=== PATIENT | female | born 2000 | race Two or more races ===

== ENCOUNTER 2020-02-19 11:20 | Inpatient (IN) | payer OTHER ==
[2020-02-19] MEDS ORDERED: ELECTROLYTE-148 SOLN 1,000 ML IV SCH (11:45)
--- NOTE | 2020-02-19 12:11 | HP ---
Past Medical History - Primary Care Physician PCP:: Enrique Beaulieu - Admission Chief Complaint: contractions History Source: Patient Limitations to Obtaining History: No Limitations - Past Medical History ...: 1 ...Para: 0 ... Weeks Gestation by Dates: 40.1 ...EDC by Sono: 02/18/20 - Past Surgical History Past Surgical History: Yes: None Hx Myomectomy: No Hx Transabdominal Cerclage: No - Smoking History Smoking history: Never smoked - Alcohol/Substance Use Hx Alcohol Use: No Home Medications - Allergies Allergies/Adverse Reactions: Allergies Allergy/AdvReac Type Severity Reaction Status Date / Time No Known Allergies Allergy Verified 02/17/20 14:57 - Home Medications Home Medications: Ambulatory Orders Pnv No.95/Ferrous Fum/Folic AC [ Vitamin Tablet] 1 each PO DAILY 02/17/20 Review of Systems - Review of Systems Constitutional: reports: No Symptoms Cardiovascular: reports: No Symptoms Respiratory: reports: No Symptoms Gastrointestinal: reports: Abdominal Pain Genitourinary: reports: No Symptoms Breasts: reports: No Symptoms Reported Musculoskeletal: reports: No Symptoms Neurological: reports: No Symptoms Psychiatric: reports: No Symptoms Physical Exam - Maternity Constitutional: Yes: No Distress, Calm Cardiovascular: Yes: Regular Rate and Rhythm Lungs: Clear to auscultation Breast(s): Yes: WNL - Abdominal Exam/OB Fundal Height: 40 Number of Fetuses: Single Presentation: Vertex Contractions: Yes Regularity: Irregular Intensity: Mild/Mod Monitor Mode: External Heart Rate (range): 150 Category: I - Vaginal Exam/OB Vaginal Bleeding: No Dilatation (cm): 4 Effacement (%): 100 Amniotic Membrane Status: Intact Presentation: Vertex/Position Station: -1 - Physical Exam Musculoskeletal: Yes: WNL Extremities: Yes: WNL Edema: No ...Motor Strength: WNL Psychiatric: Yes: Alert, Oriented Assessment/Plan 19 y/o at 40w1d in early labor. Admit to L&D Pain management Pitocin as needed EFM and toco Reassess
[2020-02-19] MEDS ORDERED: OXYTOCIN 30 UNITS in 0.9% NS 30 UNIT/500 ML INFUS.BAG IVPB SCH (12:15)
[2020-02-19 12:48] VITALS: BMI 32.7
[2020-02-19 13:02] LABS: BASO % 0.2 % (0-2.0); EOS % 0.1 % (0-4.5); HEMATOCRIT 35.1 % (32.4-45.2); HEMOGLOBIN 11.8 GM/dL (10.7-15.3); LYMPH % 14.1 % (8-40); MCHC 33.6 g/dl (32.0-36.0); MEAN CELL VOLUME 89.5 fl (80-96); MEAN PLT VOLUME 9.3 fl (7.5-11.1); MONO % 3.9 % (3.8-10.2); NEUT % 81.7 % (42.8-82.8); PLATELET COUNT 189 K/MM3 (134-434); RBC 3.92 M/mm3 (3.60-5.2); RDW 19.2 % (11.6-15.6); WHITE BLOOD COUNT 9.9 K/mm3 (4.0-10.0)
[2020-02-19 13:09] LABS: INR 0.84 (0.83-1.09); PROTHROMBIN TIME (PATIENT) 9.9 SEC (9.7-13.0)
[2020-02-19] MEDS ORDERED: OXYTOCIN 30 UNITS in 0.9% NS 30 UNIT/500 ML INFUS.BAG IVPB ONE (13:12)
[2020-02-19 13:27] LABS: BLOOD UREA NITROGEN 12.3 mg/dL (7-18); CALCIUM 8.3 mg/dL (8.5-10.1); CREATININE 0.9 mg/dL (0.55-1.3); POTASSIUM 3.5 mmol/L (3.5-5.1)
[2020-02-19] MEDS ORDERED: PCA PUMP NR ONE ×2 (16:49→21:08)
[2020-02-19] MEDS ORDERED: FENTANYL/BUPIVACAINE/NS/PF - PCEA - 50 ML DISP.SYRIN EP ONE ×2 (16:49→21:08)
[2020-02-19] MEDS ORDERED: NALOXONE HCL 0.4 MG/ML VIAL IVPUSH PRN (17:58)
[2020-02-19] MEDS ORDERED: FENTANYL/BUPIVACAINE/NS/PF - PCEA - 50 ML DISP.SYRIN EP SCH (18:00)
--- NOTE | 2020-02-19 22:01 | PN ---
Progress Note (short form) - Note Progress Note: 19 y/o at 40w1d admitted in early labor. On Pitocin, s/p epidural. Patient comfortable; offers no complaints. VE 5/100/-1, AROM - very scant amount of clear fluid Tracing category 1 Contractions q2-5min Plan: Continue monitoring Continue titrating Pitocin Anticipate
[2020-02-20] MEDS ORDERED: LABETALOL HCL 5 MG/1 ML (100MG/20 ML VIAL) ONE (00:04)
[2020-02-20] MEDS ORDERED: MAGNESIUM SULFATE 20GM/500ML - 20 GM/500 ML INFUS.BAG ONE ×3 (00:18→23:55)
[2020-02-20] MEDS ORDERED: MAGNESIUM 4GM/H20 - 4 GM/100 ML IVPB IVPB ONE ×2 (00:18→01:08)
--- NOTE | 2020-02-20 00:28 | PN ---
Progress Note (short form) - Note Progress Note: Called by nursing due to elevated BPs up to 180/90. Occasional late dec elerations noted on tracing. Patient comfortable; offers no complaints. On exam: BP 150/80 after labetalol 20 mg IVP Neuro: AAOx3 Heart: RRR Lungs: CTAB Abdomen: soft, gravid, non-tender Extremities: no edema, no calf tenderness, DTRs 2+ VE: 5-6/100/-1 Tracing now recovered: baseline 140 bpm, minimal-moderate variability, no accelerations, no decelerations Contractions q4-5min A/P - Preeclampsia with severe features, category 2 tracing Pitocin stopped; patient placed in LLP, IV bolus and O2 administered Start magnesium sulfate PIH labs Monitor vitals Antihypertensives as needed Patient counseled on possible need for C/S; patient verbalized understanding Reassess
[2020-02-20] MEDS ORDERED: LABETALOL HCL 5 MG/1 ML (100MG/20 ML VIAL) IVPUSH ONE (01:06)
[2020-02-20 01:47] LABS: BASO % 0.3 % (0-2.0); EOS % 0.1 % (0-4.5); HEMOGLOBIN 12.1 GM/dL (10.7-15.3); LYMPH % 13.9 % (8-40); MCH 29.2 pg (25.7-33.7); MCHC 32.7 g/dl (32.0-36.0); MEAN CELL VOLUME 89.3 fl (80-96); MEAN PLT VOLUME 9.5 fl (7.5-11.1); MONO % 6.5 % (3.8-10.2); NEUT % 79.2 % (42.8-82.8); PLATELET COUNT 184 K/MM3 (134-434); RBC 4.14 M/mm3 (3.60-5.2); RDW 19.1 % (11.6-15.6); WHITE BLOOD COUNT 11.8 K/mm3 (4.0-10.0)
[2020-02-20] MEDS ORDERED: MAGNESIUM SULFATE 20GM/500ML - 20 GM/500 ML INFUS.BAG IVPB SCH ×2 (02:00→10:45)
[2020-02-20 02:07] LABS: URIC ACID 8.2 mg/dL (2.6-7.2)
[2020-02-20] MEDS ORDERED: FENTANYL/BUPIVACAINE/NS/PF - PCEA - 50 ML DISP.SYRIN EP ONE ×2 (02:12→07:13)
--- NOTE | 2020-02-20 05:32 | PN ---
Progress Note (short form) - Note Progress Note: 19 y/o at 40w2d undergoing augmentation of labor, preeclampsia with severe features. On Pitocin, magnesium sulfate, s/p labetalol 20 mg IVP x1. Patient comfortable; offers no complaints. On exam: BP 130/70 Neuro: AAOx3 Heart: RRR Lungs: CTAB Abdomen: soft, gravid, non-tender Extremities: no edema, no calf tenderness, DTRs 2+ VE: 5/100/-1 Tracing: baseline 140 bpm, minimal variability, no accelerations, occasional early decelerations Contractions q4-5min, requested IUPC but unavailable as per nursing A/P - Preeclampsia with severe features, category 2 tracing, unchanged vaginal exam - likely arrest of labor Patient counseled on section but declines. States she wants to wait a few more hours and be reassessed. Patient counseled extensively on risks including but not limited to distress/low scores/, progression to category 3 tracing and need for emergent C/S, etc. Patient verbalized understanding and desires to wait and be re-examined in 2 hours. All questions answered. Continue Pitocin Continue magnesium LLP, IV fluids and O2 Monitor vitals Antihypertensives as needed Reassess
--- NOTE | 2020-02-20 06:06 | PN ---
Progress Note (short form) - Note Progress Note: Patient once again counseled on delivery and declines. Refusal of treatment form explained to and signed by patient.
[2020-02-20] MEDS ORDERED: PCA PUMP NR ONE (07:14)
--- NOTE | 2020-02-20 07:41 | PN ---
Progress Note (short form) - Note Progress Note: Patient with category 2 tracing remote from delivery and arrest of labor. Counseled once again on delivery. Vaginal exam unchanged and vulva edematous. Explained risks to fetus and patient thoroughly. Patient agrees to proceed with C/S. Informed consent obtained. NICU notified. To OR once ready.
[2020-02-20] MEDS ORDERED: LIDO 2%/EPI 1:200000 PRESRVFRE (20 ML SDVIAL) ONE (08:19)
[2020-02-20] MEDS ORDERED: KETOROLAC TROMETHAMINE 30 MG/1 ML VIAL ONE (08:26)
[2020-02-20] MEDS ORDERED: DEXAMETHASONE SOD PHOSPHATE 4 MG/1 ML VIAL ONE (08:26)
[2020-02-20] MEDS ORDERED: ceFAZolin SODIUM 1 GM VIAL ONE (08:42)
[2020-02-20] MEDS ORDERED: SODIUM CHLORIDE 0.9% P/F 10 ML VIAL IJ ONE (08:42)
[2020-02-20] MEDS ORDERED: OXYTOCIN 10 UNITS/ML VIAL ONE (08:56)
[2020-02-20] MEDS ORDERED: OXYTOCIN 20 UNITS in 0.9% NS 20 UNIT/1,000 ML INFUS.BAG IV ONE ×4 (09:38→23:55)
[2020-02-20] MEDS ORDERED: ONDANSETRON 4 MG/2 ML VIAL IVPUSH PRN (09:44)
--- NOTE | 2020-02-20 10:20 | OP ---
Operative Note - Note: Operative Date: 02/20/20 Pre-Operative Diagnosis: 19 yo Preeclampsia Arrest of dilatation Operation: LTCS Findings: baby girl born 8/9 thick meconium Ped in attendence Post-Operative Diagnosis: Same as Pre-op Surgeon: Oly Martinez Personal Vehicle Advisor: Mimi German Anesthesia: Epidural Specimens Removed: placenta and membranes. cord gases and blood Estimated Blood Loss (mls): 2,000 Operative Report Dictated: No
[2020-02-20] MEDS ORDERED: ELECTROLYTE-148 SOLN 1,000 ML IV SCH (10:35)
[2020-02-20] MEDS ORDERED: OXYTOCIN 20 UNITS in 0.9% NS 20 UNIT/1,000 ML INFUS.BAG IV SCH (12:15)
[2020-02-20] MEDS: CEFAZOLIN 1 GM in DEXTROSE 5%-WATER - 50 ML IVPB SCH (18:00)
[2020-02-20] MEDS ORDERED: CEFAZOLIN 1 GM/D5W 1 GM/50 ML BAG ONE (19:16)
[2020-02-21] MEDS ORDERED: oxyCODONE HCL 5 MG TABLET PO PRN (00:01)
[2020-02-21] MEDS ORDERED: CEFAZOLIN 1 GM/D5W 1 GM/50 ML BAG ONE ×2 (01:43→09:11)
[2020-02-21] MEDS: CEFAZOLIN 1 GM in DEXTROSE 5%-WATER - 50 ML IVPB SCH ×2 (02:05→09:35)
[2020-02-21 08:48] LABS: BASO % 0.1 % (0-2.0); EOS % 0.2 % (0-4.5); HEMATOCRIT 31.8 % (32.4-45.2); HEMOGLOBIN 10.5 GM/dL (10.7-15.3); LYMPH % 14.2 % (8-40); MCH 29.7 pg (25.7-33.7); MEAN CELL VOLUME 89.9 fl (80-96); MEAN PLT VOLUME 8.9 fl (7.5-11.1); MONO % 2.1 % (3.8-10.2); NEUT % 83.4 % (42.8-82.8); PLATELET COUNT 160 K/MM3 (134-434); RBC 3.54 M/mm3 (3.60-5.2); RDW 19.5 % (11.6-15.6); WHITE BLOOD COUNT 9.8 K/mm3 (4.0-10.0)
[2020-02-21] MEDS ORDERED: ACETAMINOPHEN 325 MG TABLET (FP) ONE (09:18)
[2020-02-21] MEDS ORDERED: IBUPROFEN 600 MG TABLET (FP) PO ONE (09:18)
--- NOTE | 2020-02-21 09:22 | PN ---
Progress Note (short form) - Note Progress Note: POD#1: patient comfortable; no complains; s/p primary c section for arrest of dilatation/NRFHT BP normal abdomen soft; dressing removed; son in place lochia normal I/P: doing well; cbc stable d/c magnesium diet
[2020-02-21] MEDS: IBUPROFEN 600 MG TABLET (FP) PO PRN ×2 (09:35→17:04)
[2020-02-21] MEDS: ACETAMINOPHEN 325 MG TABLET (FP) PO PRN ×2 (09:35→17:05)
[2020-02-21] MEDS: ENOXAPARIN NA (PORCINE) 40 MG/0.4 ML DISP.SYRIN SQ SCH (09:47)
[2020-02-21] MEDS ORDERED: BISACODYL 10 MG SUPP.RECT RC PRN (10:24)
[2020-02-21] MEDS: SIMETHICONE 80 MG TAB.CHEW (FP) PO PRN (17:07)
[2020-02-22] MEDS: SIMETHICONE 80 MG TAB.CHEW (FP) PO PRN ×2 (06:15→14:45)
[2020-02-22] MEDS: IBUPROFEN 600 MG TABLET (FP) PO PRN ×2 (06:15→14:45)
[2020-02-22] MEDS: ACETAMINOPHEN 325 MG TABLET (FP) PO PRN ×2 (06:16→14:44)
[2020-02-22] MEDS: ENOXAPARIN NA (PORCINE) 40 MG/0.4 ML DISP.SYRIN SQ SCH (09:59)
[2020-02-22] MEDS ORDERED: DIPHTH,PERTUSS(ACELL),TET 0.5 ML DISP.SYRIN IM ONE (10:00)
--- NOTE | 2020-02-22 16:53 | PN ---
Post Progress Note Post Day: 2 Type of Delivery: Primary C/S Vital Signs: Vital Signs Temperature 98.7 F 02/22/20 14:00 Pulse Rate 66 02/22/20 14:00 Respiratory Rate 18 02/22/20 14:00 Blood Pressure 135/76 02/22/20 14:00 O2 Sat by Pulse Oximetry (%) 98 02/21/20 22:00 Breast Exam: Yes: Soft Uterus: Yes: Fundus Firm, Fundus below umbilicus, Non-tender Incision: Yes: Dressing dry and intact, Ricardo intact Abdomen/GI: Yes: Abdomen soft, Tolerating PO Lochia: Yes: Rubra Lochia, amount: Small Extremities: Yes: Calves non-tender Activity: Ambulating - Labs Labs: CBC WBC 9.8 K/mm3 (4.0-10.0) 02/21/20 07:35 RBC 3.54 M/mm3 (3.60-5.2) L 02/21/20 07:35 Hgb 10.5 GM/dL (10.7-15.3) L 02/21/20 07:35 Hct 31.8 % (32.4-45.2) L 02/21/20 07:35 MCV 89.9 fl (80-96) 02/21/20 07:35 MCH 29.7 pg (25.7-33.7) 02/21/20 07:35 MCHC 33.0 g/dl (32.0-36.0) 02/21/20 07:35 RDW 19.5 % (11.6-15.6) H 02/21/20 07:35 Plt Count 160 K/MM3 (134-434) 02/21/20 07:35 MPV 8.9 fl (7.5-11.1) 02/21/20 07:35 Absolute Neuts (auto) 8.2 K/mm3 (1.5-8.0) H 02/21/20 07:35 Neutrophils % 83.4 % (42.8-82.8) H 02/21/20 07:35 Lymphocytes % 14.2 % (8-40) 02/21/20 07:35 Monocytes % 2.1 % (3.8-10.2) L 02/21/20 07:35 Eosinophils % 0.2 % (0-4.5) D 02/21/20 07:35 Basophils % 0.1 % (0-2.0) 02/21/20 07:35 Nucleated RBC % 0 % (0-0) 02/21/20 07:35 Assessment/Plan S/P delivery, pod # 2, reports passing flatus. Encourage ambulation and incentive spirometer. Continue management
[2020-02-23] MEDS: ACETAMINOPHEN 325 MG TABLET (FP) PO PRN ×2 (03:06→10:01)
[2020-02-23] MEDS: SIMETHICONE 80 MG TAB.CHEW (FP) PO PRN ×2 (03:06→10:00)
[2020-02-23] MEDS: IBUPROFEN 600 MG TABLET (FP) PO PRN ×2 (03:07→10:00)
[2020-02-23 07:11] LABS: BASO % 0.2 % (0-2.0); EOS % 0.4 % (0-4.5); HEMATOCRIT 30.1 % (32.4-45.2); HEMOGLOBIN 9.9 GM/dL (10.7-15.3); LYMPH % 23.4 % (8-40); MCH 29.5 pg (25.7-33.7); MCHC 32.8 g/dl (32.0-36.0); MEAN CELL VOLUME 89.8 fl (80-96); MEAN PLT VOLUME 8.2 fl (7.5-11.1); MONO % 4.6 % (3.8-10.2); NEUT % 71.4 % (42.8-82.8); PLATELET COUNT 187 K/MM3 (134-434); RBC 3.35 M/mm3 (3.60-5.2); WHITE BLOOD COUNT 8.1 K/mm3 (4.0-10.0)
--- NOTE | 2020-02-23 09:55 | PN ---
Progress Note (short form) - Note Progress Note: Post Anesthesia Note Patient is s/p c section under epidural anesthesia post op day three. Patient is doing well, pain controlled, no headache, nausea, vomiting or back ache. No other anesthetic complications. Dept of anesthesiology will sign off on care at this time.
[2020-02-23] MEDS: ENOXAPARIN NA (PORCINE) 40 MG/0.4 ML DISP.SYRIN SQ SCH (10:01)
[2020-02-23 10:20] LABS: ANISOCYTOSIS 0; MACROCYTOSIS 0; PLATELET ESTIMATE NORMAL
[2020-02-23 10:55] VITALS: BP 126/74; PULSE 66; TEMP 98
--- NOTE | 2020-02-23 11:21 | DS ---
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 without complaints. tolerating diet, ambulating well requesting to go home vvv-af abd: soft, nt, nd inc c/d/i ext: no calf tenderness b/l a/p s/p csection pod 3 was admitted for preeclampsia , now asymptomatic and BP stable discharge w meds and instructions to f/u in clinic early next week for staple removal Discharge Summary Problems reviewed: Yes Reason For Visit: LABOR ADMISSION Procedures: Principal: delivery Hospital Course: admitted in labor and diagnosed w preeclampsia underwent delivery postop course uncomplicated Condition: Good - Instructions Diet, Activity, Other Instructions: regular diet activity as tolerated but avoid strenuous activity, heavy lifting and intercourse wash wound with warm water and soap daily, rinse well and pat dry , leave open to air f/u in clinic next week for staple removal. Disposition: HOME - Home Medications Comprehensive Discharge Medication List: Ambulatory Orders Pnv No.95/Ferrous Fum/Folic AC [ Vitamin Tablet] 1 each PO DAILY 02/17/20 Acetaminophen [Tylenol -] 325 mg PO Q6H PRN #60 tablet 02/23/20 Ferrous Sulfate 325 mg PO BID #60 tablet 02/23/20 Ibuprofen [Motrin -] 400 mg PO Q6H PRN #50 tablet 02/23/20
--- NOTE | 2020-02-23 14:41 | PATH ---
Surgical Pathology Report Patient Name: SPENCER MEHTA Med. Rec. 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 Specimen(s) Received PLACENTA Clinical History , 40.2 gestational weeks, nonreassuring heart rate Final Diagnosis PLACENTA: THIRD TRIMESTER PLACENTA WITH SUBCHORIONIC AND PERIVILLOUS FIBRIN DEPOSITION. TRIVASCULAR CORD. MEMBRANES WITH ACUTE CHORIOAMNIONITIS. Electronically Signed Helga Ramirez M.D. Gross Description The specimen is received fresh labeled placenta and is a 430 gram, 19.0 x 17.0 x 2.7 cm. placenta with attached membranes and umbilical cord. The attached membranes are rider green, translucent with focal opacities and insert marginally. The umbilical cord measures 17 cm. in length and averages 1.1 cm. in diameter. The cord inserts eccentrically, 5.5 cm. to the nearest margin. No true knots or strictures are identified. Cut surface of the umbilical cord reveals 3 vessels. The surface is harmon green with minimal fibrin deposition and appropriate caliber vessels. The maternal surface is red-brown with focal defects. Sectioning reveals red-brown, spongy parenchyma. No lesions are identified. Sourcing Manager sections are submitted in three cassettes as follows: 1- membrane rolls and umbilical cord; 2-3- full thickness sections of placenta. 02/22/[address] [facility]02/22/2020
--- NOTE | 2020-03-10 12:43 | OP ---
DATE OF OPERATION: 02/20/2020 PREOPERATIVE DIAGNOSIS: A 19-year-old 1, para 0, preeclampsia, arrest of dilatation. POSTOPERATIVE DIAGNOSIS: A 19-year-old 1, para 0, preeclampsia, arrest of dilatation. PROCEDURE: Primary low transverse section via Pfannenstiel incision. SURGEON: Sachin Martinez MD LENS GENERATOR: Mimi German MD ANESTHESIA: Epidural. COMPLICATIONS: None. ESTIMATED BLOOD LOSS: 800 mL. FLUIDS: 2000 mL lactated Ringer's. URINE OUTPUT: 300 mL clear urine at the end of the procedure. INDICATION: A 19-year-old G1, para 0 at 41 weeks', preeclampsia, arrest of dilatation. FINDINGS: Baby girl born. 8/9. Thick meconium. Pediatrics in attendance. PROCEDURE: The patient was taken to the operating room where epidural anesthesia was found to be adequate. She was prepped and draped in the usual sterile fashion in a dorsal supine position with a leftward tilt. A Pfannenstiel skin incision was made with a scalpel and carried through to the under layer of fascia with a Bovie. The fascia was incised in the midline, and the incision extended laterally with Davenport scissors. The superior and inferior aspect of the fascial incision was grasped with Omid clamps, elevated, and the underlying rectus muscles dissected off bluntly. The rectus muscles were then in the midline, and the peritoneum identified, tinted up, and entered sharply with Metzenbaum scissors. The peritoneal incision extended superiorly and inferiorly with good visualization of the bladder. The bladder blades were then inserted, and the vesicouterine peritoneum identified, grasped with pickups, and entered sharply with Metzenbaum scissors. This incision was extended laterally, and the bladder flap created digitally. The bladder blades were then reinserted. The uterine segment incised in transverse fashion with a scalpel. The uterine incision was then extended laterally with bandage scissors. The bladder blade was removed, and the infant's head delivered atraumatically. The nose and mouth were suctioned, and the cords clamped and cut. The was handed off to the hand edger. Cord gases and blood were collected. The placenta was then removed manually. The uterus exteriorized and cleared of all clots and debris. Uterine incision was then repaired with 1-0 chromic in a running locked fashion. Second layer of the same suture was used to obtain excellent hemostasis. The bladder flap was repaired, and the uterus returned to the abdomen. The gutters were cleared of all clots, and the peritoneum closed with 2-0 chromic. The fascia was reapproximated with 0 Vicryl in a running fashion. The skin was closed with son. The patient tolerated the procedure well. Sponge, lap, needle counts were correct x2. The patient was taken to recovery room in stable condition. SACHIN MARTINEZ MD [id number]
== END 2020-02-23 14:05 | disposition home or self-care (01) | DRG 540 ==
LOC: JLDR 11:20 → J3W 02-21 11:44
PROVIDERS: ADMIT Obstetrics & Gynecology; ATTEND Obstetrics & Gynecology
PROC: 3E033VJ Introduction of Other Hormone into Peripheral Vein, Percutaneous Approach (ICD-10-PCS; principal; 2020-02-19)
PROC: 10D00Z1 Extraction of Products of Conception, Low, Open Approach (ICD-10-PCS; 2020-02-20)
DX: O48.0 Post-term pregnancy (principal); O14.14 Severe pre-eclampsia complicating childbirth; Z3A.40 40 weeks gestation of pregnancy; Z37.0 Single live birth; O61.0 Failed medical induction of labor; O63.1 Prolonged second stage (of labor); O76 Abnormality in fetal heart rate and rhythm complicating labor and delivery; O77.0 Labor and delivery complicated by meconium in amniotic fluid; Z91.410 Personal history of adult physical and sexual abuse
CPT/HCPCS: 36415; 36600; 80048; 82570; 82803; 83735; 84156; 84450; 84460; 84550; 85025; 85610; 85730; 86780; 86850; 86900; 86901; 87389; 88307-TC; 90715; U0003